=== PATIENT | female | born 1980 | race Caucasian/White ===

== ENCOUNTER 2016-06-13 23:56 | Emergency (ER) | payer OTHER ==
[~2016-06-13] VITALS: Ht 180.3 cm; Wt 82.0 kg
[~2016-06-13 23:56] MED LIST: ACET325T96 PO; BCPILLS PO
[2016-06-13 23:59] VITALS: TEMP 36.5; Ht 180.3 cm; Wt 82.0 kg
[2016-06-14 00:09] VITALS: O2SAT 99
[2016-06-14] MEDS ORDERED: LIDOCAINE HCL 2% VISC SOLN 20 ML UDC PO STA (00:15)
[2016-06-14] MEDS ORDERED: ALUMINUM/MAGNESIUM SUSP 30 ML UDC PO STA (00:15)
--- NOTE | 2016-06-14 00:15 | EMERGENCY ROOM VISIT NOTE ---
History Report prepared by Maidaibjose: Den Cr Under the Supervision of: Dr. Marielena Ledezma D.O. First contact with patient: 00:02 Chief Complaint: CHEST PAIN Stated Complaint: CHEST PAIN,NECK PAIN,NAUSEA Nursing Triage Summary: Patient states "I started last night with chest pain and I couldn't sleep. I woke up today with same pain and it started shooting up my neck. I get a fluttering feeling in my body. I have some nausea." History of Present Illness The patient is a 35 year old female who presents to the Emergency Room with complaints of intermittent chest pain since last night. The pain is described as a burning sensation. The pain is not worsened when she takes a deep breath. She also had intermittent diarrhea last night and noticed pain in her neck today. She notes some throat soreness as well. She feels short of breath when she feels the "fluttering sensation throughout her body." The patient takes Nexium for frequent heart burn. She has never followed up with a compliance specialist or been scoped. She has a paternal history of angina. She denies increased stress. The patient has not been on any long trips. She is on control. She denies history of diabetes. She does not smoke. Source of History: patient Onset: last night Position: chest Quality: burning Timing: intermittent Associated Symptoms: + SOB, + diarrhea, + neck pain, + sorethroat Review of Systems See HPI for pertinent positives & negatives. A total of 10 systems reviewed and were otherwise negative. Past Medical & Surgical Medical Problems: (1) Caesarean Section Family History Diabetes mellitus FHx: cancer Hypertension Social History Smoking Status: Never Smoker Alcohol Use: other Housing Status: lives with family Occupation Status: unemployed Current/Historical Medications Scheduled Control Pills ( Control Pills), 1 TAB PO DAILY Esomeprazole Magnesium (Nexium), 20 MG PO DAILY Scheduled PRN Acetaminophen Tab (Tylenol), 650 MG PO DIRECTED PRN for Pain or Fever Allergies Coded Allergies: No Known Allergies (Verified , 06/14/16) Physical Exam Vital Signs Date Time Temp Pulse Resp B/P Pulse Ox O2 Delivery O2 Flow Rate FiO2 06/14/16 02:16 67 16 121/79 99 06/14/16 01:09 63 18 125/87 98 Room Air 06/14/16 00:15 61 06/14/16 00:09 99 Room Air 4/7/17 23:59 36.5 68 18 130/88 96 Room Air Physical Exam HEENT: Head - normocephalic and atraumatic Pupils are equal, round, and reactive to light. Extraocular eye muscles are intact, and sclera are anicteric. Nose - moist nasal mucosa without discharge. Mouth - moist buccal mucosa. Oropharynx is nonerythematous and there is no tonsillar exudate or edema noted. Neck: Supple; no JVD, nuchal rigidity, cervical lymphadenopathy. Heart: Regular rate and rhythm. There is a normal S1 and S2 with no murmurs, clicks, or gallops appreciated. Lungs: Clear to auscultation bilaterally with no wheezes, rales, or rhonchi. Abdomen: Soft, completely nontender, nondistended, with good bowel sounds. There are no palpable pulsatile masses or hepatosplenomegaly. There is no guarding, rigidity, or rebound noted. Extremities: No evidence of cyanosis, clubbing, or edema. There are easily palpable peripheral pulses. Skin: warm and dry with good turgor and no rashes. Medical Decision & Procedures ER Provider Diagnostic Interpretation: X-ray results as stated below per interpretation by me. Chest One View Portable: Narrow mediastinum. No pulmonary pathology. Laboratory Results 06/14/16 00:10 Red Blood Count 4.38, Mean Corpuscular Volume 90.6, Mean Corpuscular Hemoglobin 31.3, Mean Corpuscular Hemoglobin Concent 34.5, Mean Platelet Volume 9.6, Neutrophils (%) (Auto) 61.3, Lymphocytes (%) (Auto) 31.0, Monocytes (%) (Auto) 5.6, Eosinophils (%) (Auto) 1.3, Basophils (%) (Auto) 0.5, Neutrophils # (Auto) 3.73, Lymphocytes # (Auto) 1.89, Monocytes # (Auto) 0.34, Eosinophils # (Auto) 0.08, Basophils # (Auto) 0.03 06/14/16 00:10 Test 06/14/16 00:10 White Blood Count 6.09 K/uL (4.8-10.8) Red Blood Count 4.38 M/uL (4.2-5.4) Hemoglobin 13.7 g/dL (12.0-16.0) Hematocrit 39.7 % (37-47) Mean Corpuscular Volume 90.6 fL (80-100) Mean Corpuscular Hemoglobin 31.3 pg (25-34) Mean Corpuscular Hemoglobin Concent 34.5 g/dl (32-36) Platelet Count 219 K/uL (130-400) Mean Platelet Volume 9.6 fL (7.4-10.4) Neutrophils (%) (Auto) 61.3 % Lymphocytes (%) (Auto) 31.0 % Monocytes (%) (Auto) 5.6 % Eosinophils (%) (Auto) 1.3 % Basophils (%) (Auto) 0.5 % Neutrophils # (Auto) 3.73 K/uL (1.4-6.5) Lymphocytes # (Auto) 1.89 K/uL (1.2-3.4) Monocytes # (Auto) 0.34 K/uL (0.11-0.59) Eosinophils # (Auto) 0.08 K/uL (0-0.5) Basophils # (Auto) 0.03 K/uL (0-0.2) RDW Standard Deviation 41.7 fL (36.4-46.3) RDW Coefficient of Variation 12.6 % (11.5-14.5) Immature Granulocyte % (Auto) 0.3 % Immature Granulocyte # (Auto) 0.02 K/uL (0.00-0.02) D-Dimer < 190 ug/L FEU (0-500) Anion Gap 8.0 mmol/L (3-11) Est Creatinine Clear Calc Drug Dose 105.2 ml/min Estimated GFR () 104.3 Estimated GFR (Non- 90.0 BUN/Creatinine Ratio 13.5 (10-20) Calcium Level 8.4 mg/dl (8.5-10.1) Total Bilirubin 0.7 mg/dl (0.2-1) Direct Bilirubin 0.2 mg/dl (0-0.2) Aspartate Amino Transf (AST/SGOT) 9 U/L (15-37) Alanine Aminotransferase (ALT/SGPT) 17 U/L (12-78) Alkaline Phosphatase 78 U/L (45-117) Total Creatine Kinase 70 U/L (26-192) Creatine Kinase MB < 0.5 ng/ml (0.5-3.6) Creatine Kinase MB Ratio (0-3.0) Troponin I < 0.015 ng/ml (0-0.045) Total Protein 7.7 gm/dl (6.4-8.2) Albumin 4.2 gm/dl (3.4-5.0) Lipase 83 U/L (73-393) Laboratory results per my review. Medications Administered Medications (Trade) Dose Ordered Sig/Jose Route Start Time Stop Time Status Last Admin Dose Admin Lidocaine HCl (Viscous Lidocaine 2% Soln) 10 ml NOW STAT PO 06/14/16 00:15 06/14/16 00:16 DC 06/14/16 00:21 10 ML Al Hydroxide/Mg Hydroxide (Maalox Susp) 30 ml NOW STAT PO 06/14/16 00:15 06/14/16 00:16 DC 06/14/16 00:21 30 ML Famotidine (Pepcid 20mg/100 ml) 20 mg ONE STAT IV 06/14/16 01:00 06/14/16 01:01 DC 06/14/16 01:06 20 MG Procedure Medications administered include Maalox PO, Lidocaine PO, Famotidine IV. ECG Indication: chest pain Rate (beats per minute): 69 Rhythm: normal sinus Findings: no acute ischemic change, no ectopy ED Course 0005: Past medical records reviewed. The patient was evaluated in room B10. A complete history and physical exam was performed. IV lock was established. Labs were drawn as above. 0015: Maalox 30 ml PO, Lidocaine HCl 10 ml PO. 0100: Checked on the patient. She is doing well. 0100: Famotidine 20 mg IV. 0155: The patient feels much better. She was eating crackers and drinking. 0205: Discussed the discharge instructions with the patient. She verbalized understanding and agreement. The patient is ready for discharge. Medical Decision The patient is a 35 year old female who presents to the ED with chest pain. Differential diagnosis includes PE, cardiac ischemia, GERD, esophagitis, pneumonia Laboratory interpretation: No leukocytosis, stable H&H, normal LFTs and lipase, normal renal function and glucose, negative cardiac enzymes, negative D-dimer. The patient is a normal EKG with negative cardiac enzymes. She had moderate relief of her chest discomfort after drinking a GI cocktail. The patient does have a history of gastroesophageal reflux disease for which she has been taking Nexium daily. I've asked her to double her dose of Nexium over the next 2 weeks. She also admits to drinking a lot of Pepsi and eating chocolate which would exacerbate the symptoms. I've asked her to avoid caffeine , tobacco, alcohol, and chocolate. Impression Primary Impression: GERD (gastroesophageal reflux disease) Scribe Attestation The scribe's documentation has been prepared under my direction and personally reviewed by me in its entirety. I confirm that the note above accurately reflects all work, treatment, procedures, and medical decision making performed by me. Departure Information Dispostion Home / Self-Care Referrals Tomás Phipps M.D. (PCP) Forms HOME CARE DOCUMENTATION FORM, IMPORTANT VISIT INFORMATION Patient Instructions ED GERD, [facility] Additional Instructions Take Nexium - 40mg daily for next 2 weeks Rest. Take a bland diet Avoid chocolate, caffeine, spearmint, alochol and tobacco. Do not eat 4 hours before bed
[2016-06-14 00:25] LABS: BASO % 0.5 %; BASO ABS # 0.03 K/uL (0-0.2); COMPLETE YES; EOS % 1.3 %; HEMATOCRIT 39.7 % (37-47); IG% 0.3 %; LYMPH ABS # 1.89 K/uL (1.2-3.4); MEAN CELL VOLUME 90.6 fL (80-100); MEAN CORPUSCULAR HEMOGLOBIN 31.3 pg (25-34); MEAN CORPUSCULAR HGB CONC 34.5 g/dl (32-36); MEAN PLATELET VOLUME 9.6 fL (7.4-10.4); MONO % 5.6 %; NEUT % 61.3 %; PLATELET COUNT 219 K/uL (130-400); RED BLOOD COUNT 4.38 M/uL (4.2-5.4); WHITE BLOOD COUNT 6.09 K/uL (4.8-10.8)
[2016-06-14] MEDS ORDERED: ESOM20CA PO (00:36)
[2016-06-14 00:55] LABS: ALT/SGPT 17 U/L (12-78); AST/SGOT 9 U/L (15-37); BLOOD UREA NITROGEN 11 mg/dl (7-18); BUN/CREATININE RATIO 13.5 (10-20); CALCIUM 8.4 mg/dl (8.5-10.1); CARBON DIOXIDE 26 mmol/L (21-32); CHLORIDE 108 mmol/L (98-107); CREATININE 0.85 mg/dl (0.60-1.20); GLUCOSE 101 mg/dl (70-99); POTASSIUM 3.4 mmol/L (3.5-5.1); SODIUM 142 mmol/L (136-145)
[2016-06-14 01:00] LABS: ALKALINE PHOSPHATASE 78 U/L (45-117)
[2016-06-14] MEDS ORDERED: FAMOTIDINE 20MG/102 ML D5W IV STA (01:00)
[2016-06-14 02:16] VITALS: BP 121/79; PULSE 67; O2SAT 99
--- NOTE | 2016-06-14 06:55 | DIAGNOSTIC IMAGING REPORT ---
CHEST ONE VIEW PORTABLE CLINICAL HISTORY: Atypical chest pain. Nausea. COMPARISON STUDY: 12-22 FINDINGS: The cardiac and mediastinal contours are normal. There is no evidence of focal pulmonary consolidation. There is no evidence of failure. No pleural effusions are visualized.[ IMPRESSION: No active disease in the chest. Electronically signed by: Beto Jacinto M.D. 06/14/2016 6:53 AM Dictated Date/Time: 06/14/2016 6:52 AM
== END 2016-06-14 02:17 | disposition home or self-care (01) ==
LOC: C.EDB 23:57
DX: K21.9 Gastro-esophageal reflux disease without esophagitis (principal); Z83.3 Family history of diabetes mellitus; Z80.9 Family history of malignant neoplasm, unspecified; Z82.49 Family history of ischemic heart disease and other diseases of the circulatory system; Z79.3 Long term (current) use of hormonal contraceptives; Z79.899 Other long term (current) drug therapy

== ENCOUNTER → 2017-02-17 | Outpatient (CLI) | payer OTHER ==
[~2017-02-17] MED LIST changes: +ESOM20CA PO
[2017-02-17 13:10] LABS: ALT/SGPT 15 U/L (12-78); AST/SGOT 8 U/L (15-37); BLOOD UREA NITROGEN 12 mg/dl (7-18); BUN/CREATININE RATIO 15.2 (10-20); CALCIUM 8.4 mg/dl (8.5-10.1); CARBON DIOXIDE 26 mmol/L (21-32); CHLORIDE 106 mmol/L (98-107); GLUCOSE 91 mg/dl (70-99); POTASSIUM 3.8 mmol/L (3.5-5.1); SODIUM 136 mmol/L (136-145)
[2017-02-17 13:12] LABS: ALB/GLOB RATIO 1.2 (0.9-2); ALKALINE PHOSPHATASE 68 U/L (45-117); CHOLESTEROL 167 mg/dl (0-200); CHOLESTEROL/HDL RATIO 3.5; HDL CHOLESTEROL 48 mg/dl; LDL CHOLESTEROL CALCULATED 94 mg/dl; TRIGLYCERIDES 123 mg/dl (0-150); VERY LOW DENSITY LIPOPROT CALC 25 mg/dl
== END | disposition home or self-care (01) ==
LOC: C.LABPVFM 09:52
PROVIDERS: ATTEND Family Medicine
DX: R51 Headache (principal); Z13.220 Encounter for screening for lipoid disorders; Z13.1 Encounter for screening for diabetes mellitus

== ENCOUNTER → 2017-05-20 | Outpatient (CLI) | payer OTHER ==
[~2017-05-20] MED LIST changes: +ACET-1693 PO; -ACET325T96 PO
== END | disposition home or self-care (01) ==
LOC: C.LABPVFM 09:17
PROVIDERS: ATTEND Nurse Practitioner Family
DX: N91.2 Amenorrhea, unspecified (principal)